=== PATIENT | female | born 1985 | race Caucasian/White ===

== ENCOUNTER 2016-10-05 23:51 | Emergency (ER) | payer OTHER ==
[~2016-10-05] VITALS: Ht 160 cm; Wt 72.6 kg
[2016-10-06 00:09] VITALS: BP 129/84
--- NOTE | 2016-10-06 00:31 | ED GENERAL ADULT ---
History of Present Illness General Chief Complaint: Lower Extremity Problems Stated Complaint: PAIN IN BACK RT KNEE/ANKLE/THIGH/HIP PER PT Source: patient Exam Limitations: no limitations Vital Signs & Intake/Output Vital Signs & Intake/Output Vital Signs Date Time Temp Pulse Resp B/P B/P Pulse O2 O2 Flow FiO2 Mean Ox Delivery Rate 10/06 0025 Room Air 10/06 0009 98.4 86 18 129/84 100 Room Air Allergies Coded Allergies: NO KNOWN ALLERGIES (01/07/11) Reconcile Medications Cyclobenzaprine HCl 10 MG TABLET 1 TAB PO TID PRN MUSCLE SPASM Ibuprofen 600 MG TABLET 1 TAB PO TID PRN pain with food Triage Note: PT TO ED C/O PAIN THAT STARTED BEHIND THE RT KNEE, NOW PAIN IS WHOLE LEG HIP TO TOE. DESCRIBES CRAPING PAIN IN THE LEG. PAIN SHARP IN RT GRT TOE. PAIN STARTED A WEEK AGO, IS CONSTANT PT AMBULATING FREELY Triage Nurses Notes Reviewed? yes Onset: Gradual Duration: week(s):, waxing and waning Timing: recent history Injury Environment: home Severity: mild Modifying Factors: Improves With: rest. Associated Symptoms: "pain behind right knee" : No Patient currently breastfeeds: No HPI: 31-year-old woman presents with one-week history of pain behind her right knee. She states that the pain radiates up around the front of her right thigh. She notes no swelling, recent trauma, redness, lower extremity swelling. She is concerned that it might be a blood clot. She is otherwise well and has no other concerns. Past History Travel History Traveled to [place] past 21 day No Medical History Any Pertinent Medical History? see below for history Surgical History Surgical History: none Psychosocial History Who do you live with Family Services at Home None What is your primary language New Zealander Tobacco Use: Current Daily Use Daily Tobacco Use Amount/Type: => 5 Cigarettes daily ETOH Use: denies use Illicit Drug Use: denies illicit drug use Family History Hx Contributory? No Review of Systems Review of Systems Constitutional: Reports: no symptoms. EENTM: Reports: no symptoms. Respiratory: Reports: no symptoms. Cardiovascular: Reports: no symptoms. GI: Reports: no symptoms. Genitourinary: Reports: no symptoms. Musculoskeletal: Reports: no symptoms. Skin: Reports: no symptoms. Neurological/Psychological: Reports: no symptoms. Hematologic/Endocrine: Reports: no symptoms. Immunologic/Allergic: Reports: no symptoms. All Other Systems: Reviewed and Negative Physical Exam Physical Exam General Appearance: well developed/nourished, no apparent distress Head: atraumatic, normal appearance Eyes: Bilateral: normal appearance. Ears, Nose, Throat: normal pharynx, normal ENT inspection Neck: normal inspection, supple, full range of motion Respiratory: normal breath sounds Gastrointestinal: normal bowel sounds Back: normal inspection, normal range of motion Extremities: normal inspection, normal capillary refill, normal range of motion, no edema, no edema and no calf tenderness bilaterally Neurologic/Psych: no motor/sensory deficits, awake Skin: intact, normal color, warm/dry Core Measures ACS in differential dx? No CVA/TIA Diagnosis: No Severe Sepsis Present: No Septic Shock Present: No Progress Differential Diagnoses I considered the following diagnoses in my evaluation of the patient: Muscle strain versus knee sprain versus myalgia versus other Plan of Care: pt given roscoe bandage and will follow up in AM for u/s Initial ED EKG: none Departure Departure Disposition: HOME OR SELF CARE Condition: Stable Clinical Impression Primary Impression: Right knee pain Referrals: SYDNI BHARDWAJ,EMERY Montgomery (PCP/Family) Departure Forms: Customer Survey General Discharge Information Prescriptions: Current Visit Scripts Ibuprofen 1 TAB PO TID PRN pain #30 TAB with food Cyclobenzaprine HCl 1 TAB PO TID PRN MUSCLE SPASM #30 TAB Comments pt given rx for nsaids and referred for u/s in AM. Critical Care Note Critical Care Note Critical Care Time: non-applicable
[2016-10-06] MEDS ORDERED: IBUPROFEN600 M1 PO (00:44)
[2016-10-06] MEDS ORDERED: CYCLOBENZAPRINE10 M1 PO (00:44)
== END 2016-10-06 00:52 ==
LOC: ERH 23:51
DX: M25.561 Pain in right knee (principal)

== ENCOUNTER 2017-07-31 19:44 | Emergency (ER) | payer OTHER ==
[~2017-07-31] VITALS: Ht 160 cm; Wt 68.0 kg
[~2017-07-31 19:44] MED LIST: CYCLOBENZAPRINE10 M1 PO; IBUPROFEN600 M1 PO; ULTRAM50 M1 PO; ZITHROMAX250 M2 PO; ZOFRAN ODT4 M1 SL
--- NOTE | 2017-07-31 22:24 | ED HEADACHE COMPLAINT ---
History of Present Illness General Chief Complaint: General Adult Stated Complaint: PRESSURE ON RIGHT SIDE OF HEAD,DIZZY Source: patient, family Exam Limitations: no limitations Vital Signs & Intake/Output Vital Signs & Intake/Output Vital Signs Date Time Temp Pulse Resp B/P B/P Pulse O2 O2 Flow FiO2 Mean Ox Delivery Rate 08/01 010 98.5 68 18 107/65 97 Room Air 07/31 1949 98.1 110 20 160/84 98 Room Air ED Intake and Output 08/01 0000 07/31 1200 Intake Total 0 Output Total 0 Balance 0 Intake, Oral 0 Output, Urine 0 Patient 150 lb Weight Allergies Coded Allergies: Penicillins (Intermediate, FACIAL SWELLING, RASH 05/06/17) epinephrine (Mild, RACING HEART 05/06/17) Reconcile Medications Azithromycin (Zithromax) 250 MG TABLET 0 PO SEE ADMIN CRITERIA lymphadenitis 2 tabs day 1 then 1 tab daily x 4 days Cyclobenzaprine HCl 10 MG TABLET 1 TAB PO TID PRN MUSCLE SPASM Ibuprofen 600 MG TABLET 1 TAB PO TID PRN pain with food Ibuprofen 600 MG TABLET 1 TAB PO Q6PRN PRN pain with food Ondansetron (Zofran Odt) 4 MG TAB.RAPDIS 1 TAB SL TID PRN nausea Tramadol HCl (Ultram) 50 MG TABLET 1-2 TAB PO Q6PRN PRN severe pain Triage Note: PT TO TRIAGE C/O R SIDED HEAD PAIN AND DIZZINESS SINCE APRIL. PER PT HAS BEEN SEEN HERE 3 TIMES FOR SAME, HAD TWO NEGATIVE CAT SCANS AND F/U WITH ENT WITH NEGATIVE OUTCOMES WELL. DENIES PHOTOSENSITIVITY, PUPILS EQUAL AND REACTIVE. REPORTS PAIN 8/10 AND FEELS IF SHE IS SPINNING. Triage Nurses Notes Reviewed? yes : No Patient currently breastfeeds: No HPI: Patient presents for evaluation of fluctuating but more or less constant right- sided head pressure that began in April. Patient has been evaluated twice previously in the emergency department for the same symptom complex and was also evaluated by her primary care physician and an early childhood worker. No diagnosis has yet to be made. Patient states in addition to the pressure sensation she has felt right eye swelling and a question of numbness of the right eye over the past week. In addition she has felt dizziness over the past week as well. She denies any associated fever, hearing loss, facial swelling or tinnitus. She denies drug or alcohol use but is a one half pack per day cigarette smoker. Past History Travel History Traveled to [place] past 21 day No Medical History Any Pertinent Medical History? 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 No Review of Systems Review of Systems Constitutional: Reports: no symptoms. Eyes: Reports: see HPI. Ears, Nose, Throat, Mouth: Reports: no symptoms. Respiratory: Reports: no symptoms. Cardiovascular: Reports: no symptoms. Gastrointestinal/Abdominal: Reports: no symptoms. Genitourinary: Reports: no symptoms. Musculoskeletal: Reports: no symptoms. Skin: Reports: no symptoms. Neurological/Psychological: Reports: headache. Hematologic/Endocrine: Reports: no symptoms. Endocrine: Reports: no symptoms. Immunologic/Allergic: Reports: no symptoms. All Other Systems: Reviewed and Negative Physical Exam Physical Exam Cranial Nerves: SEE BELOW Comments: Gen.: Well-nourished, well-developed, no acute respiratory distress. Head: Normocephalic, atraumatic. Nontender over temples Face: Nontender to percussion over the sinuses or mastoids Eyes: Normal inspection bilaterally, right eye: PERRLA, EOMI, fundus normal Ears: Normal inspection bilaterally, right ear: Normal tympanic membrane and canal, no tenderness with traction of the pinna Nose: Normal inspection Throat/mouth : Moist mucosa Neck: Supple, full range of motion, no goiter Heart: Regular rate and rhythm Lungs: Quiet respirations Back: Normal range of motion Extremities: Normal range of motion grossly, equal radial pulses, no cyanosis clubbing or edema of upper extremities Neurologic: Cranial nerves 2 through 12 intact, speech is clear, no dysmetria Skin: warm and dry Psychiatric: Calm, cooperative, no apparent delusions or hallucinations Lymphatic: No periauricular lymphadenopathy, no cervical lymphadenopathy Core Measures Sepsis Present: No Sepsis Focused Exam Completed? No Progress Differential Diagnosis: MASTOIDITIS, SINUSITIS, INTERNAL AUDITORY CANAL MASS, SWELLING, ABSCESS, tmj SYNDROME, LYMPHADENOPATHY Plan of Care: Orders Procedure Date/time Status Vital Signs 07/31 2321 Active HIGH SENSITIVITY CRP 08/01 2223 Complete HUMAN BETA HCG SCREEN 08/01 2223 Complete CBC WITHOUT DIFFERENTIAL 08/01 2223 Complete BASIC METABOLIC PANEL 08/01 2223 Complete Laboratory Tests 07/31/177: Anion Gap 13, Estimated GFR > 60, BUN/Creatinine Ratio 11.7, Glucose 89, Calcium 10.0, C-React Prot High Sens 1.1, Total Beta HCG NEGATIVE, CBC w Diff NO MAN DIFF REQ, RBC 4.76, MCV 85.8, MCH 28.6, MCHC 33.3, RDW 13.1, MPV 8.9, Gran % 71.2, Lymphocytes % 23.1, Monocytes % 4.6, Eosinophils % 0.8, Basophils % 0.3, Absolute Granulocytes 10.4 H, Absolute Lymphocytes 3.4, Absolute Monocytes 0.7 H, Absolute Eosinophils 0.1, Absolute Basophils 0 Diagnostic Imaging: Discussed w/RAD: CT Scan. Radiology Impression: PATIENT: AL DEL ANGEL PRESENT AGE: 32 PATIENT ACCOUNT NO: [id number] : 87 LOCATION: [facility] ORDERING PHYSICIAN: Geovani Ardon MD SERVICE DATE: 07/31/17 EXAM TYPE : CAT - CT HEAD W IV CONTRAST; CT INT AUD CANALS W IV CONT CT HEAD WITHOUT IV CONTRAST CT TEMPORAL BONE WITH IV CONTRAST INDICATION: Right-sided head pressure and dizziness. Right eye feels swollen. COMPARISON: Neck CT 05/06/2017 per TECHNIQUE: Multidetector CT acquisitions of the head is obtained without IV contrast. Additionally, a temporal bone CT is obtained following the administration of 95 mls 320 optiray IV contrast without complication. FINDINGS: CT HEAD: There is no intracranial hemorrhage, hydrocephalus, extra-axial surface collection, midline shift, or other herniation pattern. Rivera to white matter differentiation is diffusely maintained without evidence of an evolved acute territorial infarct. The basilar cisterns are preserved. No significant soft tissue abnormality. No acute osseous abnormality. The paranasal sinuses and the mastoid air cells are well-aerated. CT TEMPORAL BONES: The mastoid air cells and the middle ear cavities are clear. Tympanic plates are normal. The ossicular chains are intact bilaterally. The inner ear structures including the semicircular canals, vestibules, and cochlea are normal. The semicircular canals remain well covered with bone. No otospongiosis. The vestibular aqueducts are normal in size. The internal carotid arteries are well covered with bone and the sigmoid plates are intact. There is no pathologic enhancement within the partially imaged intracranial compartment. The orbital soft tissues are unremarkable and there is no preseptal nor post septal inflammation. IMPRESSION: - No acute intracranial findings. - Unremarkable contrast enhanced CT of the temporal bones. The mastoid air cells and the middle ear cavities are clear. DICTATED BY: Geovani Martinez MD DATE/TIME DICTATED:07/31/172356 PARTS CLERK:JUNG DATE/TIME TRANSCRIBED:07/31/172356 CONFIDENTIAL, DO NOT COPY WITHOUT APPROPRIATE AUTHORIZATION. <Electronically signed in Other Vendor System> SIGNED BY: Geovani Martinez MD 08/01/17 0013 Comments: 08/01/2017 1:02:12 AM I have updated Al on test results. She has declined prescriptions for symptoms. Departure Departure Disposition: HOME OR SELF CARE Condition: Stable Clinical Impression Primary Impression: Leukocytosis Qualifiers: Leukocytosis type: unspecified Qualified Code: D72.829 - Elevated white blood cell count, unspecified Secondary Impressions: Head pain Qualifiers: Headache type: unspecified Headache chronicity pattern: unspecified pattern Intractability: not intractable Qualified Code: R51 - Headache Referrals: Gerald BHARDWAJ,Zia Troy MD,Milad Montgomery (PCP/Family) Additional Instructions: Follow-up with Dr. TROY and Dr. Duarte (neurology) this week for further evaluation and treatment given the unclear nature of your symptoms. Please return if any concerns or sudden worsening. Please note that there might be incidental findings in your evaluation that are unrelated to the current emergency department visit. Please notify your primary care doctor about this emergency department visit in order to obtain and review all of the testing performed so that these incidental findings can be monitored as needed. If you had an x-ray performed, please understand that some fractures may not be seen on the initial set of x-rays. If your symptoms persist you might need a repeat set of x-rays to check for such a fracture. If you had a laceration evaluated, please understand that foreign bodies such as glass or wood may not be visible to the naked eye or on plain x-rays. If the wound becomes red, swollen, increasingly more painful or if there is any drainage from the wound, please have it reevaluated by a physician for the possibility of a retained foreign body. If you're unable to follow up as outlined in the discharge instructions please return to the emergency department. Thank you for choosing the [facility] Emergency Department for your care. It was a pleasure to serve you today. Geovani Ardon M.D. [facility] Departure Forms: Customer Survey General Discharge Information
[2017-07-31 23:35] LABS: ABSOLUTE BASOPHIL COUNT 0 /CUMM (0.0-0.2); ABSOLUTE EOSINOPHIL COUNT 0.1 /CUMM (0.0-0.7); ABSOLUTE GRANULOCYTE CT 10.4 /CUMM (1.4-6.5); ABSOLUTE LYMPH COUNT 3.4 /CUMM (1.2-3.4); ABSOLUTE MONOCYTE COUNT 0.7 /CUMM (0.10-0.60); BASOPHIL % 0.3 % (0.0-2.0); EOSINOPHIL % 0.8 % (0-5); GRANULOCYTE % 71.2 % (42.2-75.2); HEMATOCRIT 40.9 % (37-47); MEAN CORPUSCULAR HGB 28.6 PG (27.0-31.0); MEAN CORPUSCULAR HGB CONC 33.3 G/DL (33.0-37.0); MEAN CORPUSCULAR VOLUME 85.8 FL (81.0-99.0); MEAN PLATELET VOLUME 8.9 FL (7.4-10.4); PLATELET COUNT 339 /CUMM (130-400); RBC DISTRIBUTION WIDTH 13.1 % (11.5-14.5); RED BLOOD CELL CT 4.76 /CUMM (4.20-5.40); WHITE BLOOD CELL COUNT 14.7 /CUMM (4.8-10.8)
--- NOTE | 2017-08-01 00:13 | CT SCAN REPORT ---
CT HEAD WITHOUT IV CONTRAST CT TEMPORAL BONE WITH IV CONTRAST INDICATION: Right-sided head pressure and dizziness. Right eye feels swollen. COMPARISON: Neck CT 05/06/2017 per TECHNIQUE: Multidetector CT acquisitions of the head is obtained without IV contrast. Additionally, a temporal bone CT is obtained following the administration of 95 mls 320 optiray IV contrast without complication. FINDINGS: CT HEAD: There is no intracranial hemorrhage, hydrocephalus, extra-axial surface collection, midline shift, or other herniation pattern. Rivera to white matter differentiation is diffusely maintained without evidence of an evolved acute territorial infarct. The basilar cisterns are preserved. No significant soft tissue abnormality. No acute osseous abnormality. The paranasal sinuses and the mastoid air cells are well-aerated. CT TEMPORAL BONES: The mastoid air cells and the middle ear cavities are clear. Tympanic plates are normal. The ossicular chains are intact bilaterally. The inner ear structures including the semicircular canals, vestibules, and cochlea are normal. The semicircular canals remain well covered with bone. No otospongiosis. The vestibular aqueducts are normal in size. The internal carotid arteries are well covered with bone and the sigmoid plates are intact. There is no pathologic enhancement within the partially imaged intracranial compartment. The orbital soft tissues are unremarkable and there is no preseptal nor post septal inflammation. IMPRESSION: - No acute intracranial findings. - Unremarkable contrast enhanced CT of the temporal bones. The mastoid air cells and the middle ear cavities are clear.
[2017-08-01 01:07] VITALS: BP 107/65
== END 2017-08-01 01:08 ==
LOC: ERH 19:44
PROVIDERS: Emergency Medicine
DX: D72.829 Elevated white blood cell count, unspecified (principal); R51 Headache

== ENCOUNTER 2017-10-18 11:06 | Emergency (ER) | payer OTHER ==
[~2017-10-18] VITALS: Ht 160 cm; Wt 66.7 kg
[~2017-10-18 11:06] MED LIST changes: +PROVENTIL HFA6.7 GM INH
[2017-10-18 12:06] LABS: ABSOLUTE BASOPHIL COUNT 0 /CUMM (0.0-0.2); ABSOLUTE EOSINOPHIL COUNT 0.4 /CUMM (0.0-0.7); ABSOLUTE GRANULOCYTE CT 4.6 /CUMM (1.4-6.5); ABSOLUTE MONOCYTE COUNT 0.4 /CUMM (0.10-0.60); BASOPHIL % 0.6 % (0.0-2.0); EOSINOPHIL % 4.4 % (0-5); GRANULOCYTE % 54.8 % (42.2-75.2); HEMATOCRIT 42.8 % (37-47); MEAN CORPUSCULAR HGB 28.4 PG (27.0-31.0); MEAN CORPUSCULAR HGB CONC 32.8 G/DL (33.0-37.0); MEAN CORPUSCULAR VOLUME 86.6 FL (81.0-99.0); MEAN PLATELET VOLUME 9.1 FL (7.4-10.4); PLATELET COUNT 373 /CUMM (130-400); RBC DISTRIBUTION WIDTH 13.6 % (11.5-14.5); RED BLOOD CELL CT 4.94 /CUMM (4.20-5.40); WHITE BLOOD CELL COUNT 8.4 /CUMM (4.8-10.8)
--- NOTE | 2017-10-18 12:18 | ED GENERAL ADULT ---
History of Present Illness General Chief Complaint: Abdominal Pain/Flank Pain Stated Complaint: SOB. RUQ ABD PAIN RADIATING INTO BACK Source: patient, old records Exam Limitations: no limitations Vital Signs & Intake/Output Vital Signs & Intake/Output Vital Signs Date Time Temp Pulse Resp B/P B/P Pulse O2 O2 Flow FiO2 Mean Ox Delivery Rate 10/18 1203 Room Air 10/18 1108 96.5 101 16 148/85 98 Room Air Allergies Coded Allergies: Penicillins (Intermediate, FACIAL SWELLING, RASH 05/06/17) epinephrine (Mild, RACING HEART 05/06/17) Triage Note: 32 Y/O FEMALE C/O RUQ PAIN AND SOB X 2-3 DAYS. HAS BEEN EVAL'D IN ED AND HAD CT SCAN WITH UNKNOWN RESULTS. REPORTS CONTINUED SYMPTOMS. +DIARRHEA. AFEBRILE Triage Nurses Notes Reviewed? yes : No Patient currently breastfeeds: No HPI: Patient is 32-year-old female with PMH anxiety, chronic headache (Nl, MRI 10/08) presented to the ED with CC of RUQ . Patient della was present at the bedside. Birefly patient reported RUQ pain for the last few days, radiates to back, sharp , constant, no change with food, increased with touching. She also reported 3 loose bowel movements last night. Patient denied any change with fatty food, any change in urine color, dysuria, frequency, cough or sputum. Her last menstrual period was 6 weeks ago. He denied any vaginal discharge, itchiness, bleeding. Patient had 8 visits to the ED in the last 1 year due to different medical conditions, 3rd visit in the last month mainly due to abdominal pain and SOB, and was administered Albutrol with recommendations to follow with PCP who prescribed a course of azithromycin. Patient denied any improvement, yet she had no complaint of SOB at the time of interview. She reported smoking 0.5-1 PPD for the last 10years, denied any alcohol intake or recreational drugs. (Angelo Garza MD,Vidal Burnham) Reconcile Medications Albuterol Sulfate (Proventil Hfa) 90 MCG HFA.AER.AD 2 PUF INH Q4 SOB Azithromycin (Zithromax) 250 MG TABLET 0 PO SEE ADMIN CRITERIA lymphadenitis 2 tabs day 1 then 1 tab daily x 4 days Baclofen 10 MG TABLET 1 TAB PO TIDPRN PRN muscle spasm/strain Cyclobenzaprine HCl 10 MG TABLET 1 TAB PO TID PRN MUSCLE SPASM Ibuprofen 600 MG TABLET 1 TAB PO TID PRN pain with food Ibuprofen 600 MG TABLET 1 TAB PO Q6PRN PRN pain with food Ondansetron (Zofran Odt) 4 MG TAB.RAPDIS 1 TAB SL TID PRN nausea Tramadol HCl (Ultram) 50 MG TABLET 1-2 TAB PO Q6PRN PRN severe pain Tramadol HCl (Ultram) 50 MG TABLET 1 TAB PO BIDP PRN severe pain (Drew Waldron MD) Past History Travel History Traveled to [place] past 21 day No Medical History Any Pertinent Medical History? none Neurological: NONE, MS ? 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 No (Angelo Garza MD,Vidal Burnham) Review of Systems Review of Systems Constitutional: Reports: see HPI. (Vidal Pelletier MD) Review of Systems Constitutional: Reports: no symptoms. EENTM: Reports: no symptoms. Respiratory: Reports: no symptoms. Cardiovascular: Reports: no symptoms. GI: Reports: see HPI, abdominal pain. Genitourinary: Reports: no symptoms. Musculoskeletal: Reports: no symptoms. Skin: Reports: no symptoms. Neurological/Psychological: Reports: no symptoms. Hematologic/Endocrine: Reports: no symptoms. Immunologic/Allergic: Reports: no symptoms. All Other Systems: Reviewed and Negative (Drew Waldron MD) Physical Exam Physical Exam General Appearance: well developed/nourished, no apparent distress, alert, awake Head: atraumatic, normal appearance Neck: supple, JVD Respiratory: normal breath sounds, chest non-tender Cardiovascular: regular rate/rhythm, edema Gastrointestinal: soft, no organomegaly, RUQ tenderness, no rebound, no CVA tenderness Core Measures ACS in differential dx? No CVA/TIA Diagnosis: No Sepsis Present: No Sepsis Focused Exam Completed? No (Angelo Garza MD,Amir Tej) Physical Exam Eyes: Bilateral: normal appearance, PERRL, EOMI. Ears, Nose, Throat: normal pharynx, normal ENT inspection, hearing grossly normal Peripheral Pulses: 4+ carotid (R), 4+ carotid (L) Back: normal inspection, normal range of motion, no vertebral tenderness Extremities: normal inspection, normal capillary refill, normal range of motion, no edema Neurologic/Psych: no motor/sensory deficits, awake, alert, oriented x 3, normal gait, wood getter II-XII nml as tested Reflexes: 2+: bicep (R), bicep (L). Skin: intact, normal color Lymphatic: no anterior cervical imani (Vanita BHARDWAJ,Drew) Progress Differential Diagnoses I considered the following diagnoses in my evaluation of the patient: [ Cholelithiasis, cholecystitis, PUD, , renal stone] Plan of Care: Orders Procedure Date/time Status URINALYSIS 10/18 1330 Complete LIPASE 10/18 111 Complete HUMAN BETA HCG SCREEN 10/18 111 Complete COMPREHENSIVE METABOLIC PANEL 10/18 111 Complete CBC WITHOUT DIFFERENTIAL 10/18 1117 Complete AMYLASE 10/18 111 Complete Laboratory Tests 10/18/17 1358: Urine Color STRAW, Urine Clarity CLEAR, Urine pH 6.0, Ur Specific [place] <= 1.005, Urine Protein NEG, Urine Ketones NEG, Urine Nitrite NEG, Urine Bilirubin NEG, Urine Urobilinogen 0.2, Ur Leukocyte Esterase TRACE H, Ur Microscopic SEDIMENT EXAMINED, Urine RBC 1-3, Urine WBC 1-3 H, Ur Epithelial Cells FEW, Urine Bacteria MOD H, Urine Mucus FEW, Urine Hemoglobin NEG, Urine Glucose NEG 10/18/17 1152: Anion Gap 11, Estimated GFR > 60, BUN/Creatinine Ratio 18.6, Glucose 101 H, Calcium 9.5, Total Bilirubin 0.5, AST 18, ALT 23, Alkaline Phosphatase 78, Total Protein 7.2, Albumin 4.1, Globulin 3.1, Albumin/Globulin Ratio 1.3, Amylase 68, Lipase 109, Total Beta HCG NEGATIVE, CBC w Diff NO MAN DIFF REQ, RBC 4.94, MCV 86.6, MCH 28.4, MCHC 32.8 L, RDW 13.6, MPV 9.1, Gran % 54.8, Lymphocytes % 35.3 , Monocytes % 4.9, Eosinophils % 4.4, Basophils % 0.6, Absolute Granulocytes 4.6 , Absolute Lymphocytes 3.0, Absolute Monocytes 0.4, Absolute Eosinophils 0.4, Absolute Basophils 0 RUQ scan, if not availabe planned for CT scan of the abdomen, would be less sensitive for gallstone, however will help more with renal stone Initial ED EKG: none (Angelo Garza MD,Vidal Burnham) Differential Diagnoses I considered the following diagnoses in my evaluation of the patient: Diagnostic Imaging: Viewed by Me: CT Scan. Discussed w/RAD: CT Scan. Radiology Impression: Unremarkable exam. No stone seen. (Drew Waldron MD) Departure Departure Condition: Stable Referrals: Milad Queen MD (PCP/Family) Departure Forms: Customer Survey General Discharge Information (Angelo Garza MD,Vidal Burnham) Departure Time of Disposition: 1423 Disposition: HOME OR SELF CARE Clinical Impression Primary Impression: Acute chest wall pain Secondary Impressions: Abdominal wall pain Prescriptions: Current Visit Scripts Baclofen 1 TAB PO TIDPRN PRN muscle spasm/strain #30 TAB Tramadol HCl (Ultram) 1 TAB PO BIDP PRN severe pain #30 TAB Resident Co-Sign Statement Statement: ED Attending supervision documentation- x I saw and evaluated the patient. I have also reviewed all the pertinent lab results and diagnostic results. I agree with the findings and the plan of care as documented in the Resident's documentation. [] I have reviewed the ED Record and agree with the Resident's documentation. [] Additions or exceptions (if any) to the Resident's note and plan are summarized below: [] (Drew Waldron MD) Critical Care Note Critical Care Note Critical Care Time: non-applicable (Drew Waldron MD)
--- NOTE | 2017-10-18 13:55 | CT SCAN REPORT ---
EXAMINATION: CT ABDOMEN AND PELVIS WITHOUT CONTRAST CLINICAL INFORMATION: Right upper quadrant abdominal pain and tenderness. COMPARISON: Previous CT December 2010 TECHNIQUE: Multidetector volumetric imaging was performed from the superior aspect of the liver through the pubic symphysis. Sagittal and coronal reformatted images were obtained on the technologist's workstation. DLP: 269 mGy-cm FINDINGS: LUNG BASES: The visualized lung bases are unremarkable. LIVER, GALLBLADDER, AND BILIARY TREE: The liver is normal in size, shape, and attenuation. No focal hepatic lesion or biliary ductal dilatation is present. The gallbladder is unremarkable with no evidence of radiopaque gallstones, gallbladder wall thickening, or obvious pericholecystic inflammatory changes. PANCREAS: Unremarkable. SPLEEN: Unremarkable. ADRENAL GLANDS: Unremarkable. KIDNEYS AND URETERS: The kidneys are normal in size, shape, and attenuation. No hydronephrosis, hydroureter, or calculi seen. There may be a duplicated left renal collecting system. BLADDER: Unremarkable. GASTROINTESTINAL TRACT: The small and large bowel are unremarkable. The appendix is not identified with certainty. No evidence of appendicitis is seen. ABDOMINAL WALL: No significant hernia is appreciated. LYMPH NODES: Normal. VASCULAR: Unremarkable. PELVIC VISCERA: Unremarkable. OSSEOUS STRUCTURES: Unremarkable. IMPRESSION: Unremarkable exam. No stone seen.
[2017-10-18] MEDS ORDERED: BACLOFEN10 M1 PO (14:25)
[2017-10-18] MEDS ORDERED: ULTRAM50 M1 PO (14:25)
[2017-10-18 14:39] VITALS: BP 126/78
== END 2017-10-18 14:39 ==
LOC: ERH 11:06
PROVIDERS: Physician Assistant Medical
DX: R07.89 Other chest pain (principal); R10.31 Right lower quadrant pain
CPT/HCPCS: 74176; 81001